=== PATIENT | male | born 2000 | race Hispanic/Latino ===

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

== ENCOUNTER 2020-09-12 03:40 | Emergency (ER) | payer SELFPAY ==
[2020-09-12 04:56] LABS: Absolute Lymphocytes (CBC) 2.5 K/uL (0.7-4.9); Basophils % 1.1 % (0-1.3); Hematocrit 47.1 % (39.6-49.0); Lymphocytes % 32.1 % (15.3-44.8); MPV 8.8 fL (7.6-11.3); RBC Red Blood Cell Count 5.19 M/uL (4.33-5.43)
[2020-09-12 05:24] LABS: ALT/SGPT 28 U/L (12-78); AST/SGOT 36 U/L (15-37); Albumin 4.2 g/dL (3.4-5.0); Alkaline Phosphatase 96 U/L (45-117); BUN Blood Urea Nitrogen 18 mg/dL (7-18); Bicarbonate 21 mmol/L (21-32); Bilirubin Direct < 0.1 mg/dL (0-0.2); Bilirubin Total 0.2 mg/dL (0.2-1.0); Glucose Level 85 mg/dL (74-106); Magnesium 2.6 mg/dL (1.8-2.4); NT PRO-BNP 8 pg/mL (<125); Potassium 3.8 mmol/L (3.5-5.1); Protein, Total 7.8 g/dL (6.4-8.2); Sodium Level 141 mmol/L (136-145); Troponin (Emerg Dept Use Only) < 0.02 ng/mL (0.0-0.045)
[2020-09-12 05:38] LABS: SARS-COV-2 RT PCR NEGATIVE (NEGATIVE)
[2020-09-12] MEDS ORDERED: NA CHLORIDE 0.9% 1,000 ML ONE (05:57)
--- NOTE | 2020-09-12 08:09 | RAD REPORT ---
EXAM DESCRIPTION: CT - Chest For Pe Angio - 09/12/2020 6:17 am CLINICAL HISTORY: Chest pain COMPARISON: None. TECHNIQUE: Dynamically enhanced axial 3 mm thick images of the chest were obtained during administra tion of <100> mL Isovue 370 IV contrast. Coronal and oblique reconstruction images were generated and reviewed. Exam utilizes a protocol for optimal evaluation of pulmonary arterial tree. Maximum intensity projections 3D imaging was utilized All CT scans are performed using dose optimization technique as appropriate and may include automated exposure control or mA/KV adjustment according to patient size. FINDINGS: A pulmonary embolus is not seen. A thoracic aortic aneurysm is not noted. A pleural effusion is not seen. A pericardial effusion is not seen. A lung consolidation is not present. IMPRESSION: Negative for a pulmonary embolism.
--- NOTE | 2020-09-12 08:09 | RAD REPORT ---
EXAM DESCRIPTION: [facility] Single View09/12/2020 5:11 am CLINICAL HISTORY: Chest pain COMPARISON: 2018 FINDINGS: The lungs appear clear of acute infiltrate. The heart is normal size IMPRESSION: No acute abnormalities displayed
--- NOTE | 2020-09-12 08:15 | ER ---
Nurse's Notes [facility] Name: Fredis Michaels Age: 19 yrs Sex: Male : 2000 Arrival Date: 09/12/2020 Time: 03:42 Bed 3 Private MD: Diagnosis: Chest pain, unspecified;Syncope and collapse Presentation: 09/12 03:45 Chief complaint: Patient states: Reports feeling chest pain; Friend reports patient lp1 passing out on ride to ED; patient states hx of similar symptoms with Flu; Denies any other symptoms at this time. Coronavirus screen: Client denies travel out of the [place] in the last 14 days. shortness of breath, Client presents with at least one sign or symptom that may indicate coronavirus-19. Standard/surgical mask placed on the client. Provider contacted for isolation considerations. Ebola Screen: No symptoms or risks identified at this time. Initial Sepsis Screen: Does the patient meet any 2 criteria? No. Patient's initial sepsis screen is negative. Does the patient have a suspected source of infection? No. Patient's initial sepsis screen is negative. Risk Assessment: Do you want to hurt yourself or someone else? Patient reports no desire to harm self or others. Onset of symptoms was September 12, 2020. 03:45 Method Of Arrival: Wheelchair lp1 03:45 Acuity: BRODERICK 3 lp1 Historical: - Allergies: 03:47 No Known Allergies; lp1 - Home Meds: 03:47 None [Active]; lp1 - PMHx: 03:47 flu infection; Myocardial infarction; lp1 - PSHx: 03:47 None; lp1 - Immunization history:: Adult Immunizations up to date. - Social history:: Smoking status: Patient reports the use of cigarette tobacco products, denies chronic smoking, but will smoke occasionally. Screenin:47 Abuse screen: Denies threats or abuse. Denies injuries from another. Nutritional lp1 screening: No deficits noted. Tuberculosis screening: No symptoms or risk factors identified. 04:13 Fall Risk IV access (20 points). ea Assessment: 03:45 General: Appears in no apparent distress. Behavior is drowsy. Pain: Complains of pain ea in chest. Neuro: Level of Consciousness is awake, alert, obeys commands, Oriented to person, place, time, situation. Respiratory: Airway is patent Respiratory effort is even, unlabored, Respiratory pattern is regular, symmetrical. Derm: Skin is pink, warm \T\ dry. 04:20 Reassessment: Patient and/or family updated on plan of care and expected duration. Pain ea level reassessed. Patient is alert, oriented x 3, equal unlabored respirations, skin warm/dry/pink. 05:51 Reassessment: Patient and/or family updated on plan of care and expected duration. Pain ea level reassessed. Pt resting with eyes closed respirations even and unlabored, chest expansions even and symmetrical. 06:05 Reassessment: Patient and/or family updated on plan of care and expected duration. Pain ea level reassessed. Patient is alert, oriented x 3, equal unlabored respirations, skin warm/dry/pink. Pt taken to CT. 07:00 Reassessment: RECD REPORT FROM MACHELLE CRUZ. 19YO HM P/W CHEST PAIN, 2/2 ANXIETY. ALL wh CURRENT ORDERS COMPLETE. 07:20 Reassessment: Patient appears in no apparent distress at this time. No changes from jd3 previously documented assessment. Patient and/or family updated on plan of care and expected duration. Pain level reassessed. Patient is alert, oriented x 3, equal unlabored respirations, skin warm/dry/pink. 08:49 Reassessment: Patient appears in no apparent distress at this time. Patient and/or jd3 family updated on plan of care and expected duration. Pain level reassessed. Patient is alert, oriented x 3, equal unlabored respirations, skin warm/dry/pink. awaiting phone to charge to call ride. Neuro: Level of Consciousness is awake, alert, obeys commands, Oriented to person, place, time, situation. Cardiovascular: Capillary refill < 3 seconds Patient's skin is warm and dry. Rhythm is regular. Respiratory: Airway is patent Respiratory effort is even, unlabored, Respiratory pattern is regular, symmetrical. GI: No signs and/or symptoms were reported involving the gastrointestinal system. : No signs and/or symptoms were reported regarding the genitourinary system. EENT: No signs and/or symptoms were reported regarding the EENT system. Derm: Skin is intact, Skin is dry, Skin is normal, Skin temperature is warm. Musculoskeletal: Circulation, motion, and sensation intact. Range of motion: intact in all extremities. 09:14 Reassessment: Patient and/or family updated on plan of care and expected duration. Pain jd3 level reassessed. Patient is alert, oriented x 3, equal unlabored respirations, skin warm/dry/pink. even and steady gait upon discharge. Vital Signs: 03:45 BP 133 / 83; Pulse 97; Resp 20; Pulse Ox 97% on R/A; lp1 03:58 Temp 98.8; Weight 83.91 kg; Height 5 ft. 6 in. (167.64 cm); ea 05:00 BP 106 / 64; Pulse 82; Resp 18; Pulse Ox 97% on R/A; ea 06:00 BP 103 / 70; Pulse 71; Resp 18; Pulse Ox 99% ; ea 07:20 BP 104 / 60; Pulse 71; Resp 19 S; Pulse Ox 98% on R/A; jd3 03:58 Body Mass Index 29.86 (83.91 kg, 167.64 cm) ea ED Course: 03:42 Patient arrived in ED. am2 03:42 Fuad Mahmood MD is Attending Physician. [facility] 03:46 Triage completed. lp1 03:46 Arm band placed on. lp1 03:53 Machelle Montgomery, ANTHONY is Primary Nurse. 03:57 Inserted saline lock: 20 gauge in right antecubital area, using aseptic technique. ea Blood collected. 03:58 Patient has correct armband on for positive identification. Bed in low position. Call ea light in reach. Side rails up X2. vehicle monitor technician on. Pulse ox on. NIBP on. 05:11 XRAY Chest (1 view) In Process Unspecified. EDMS 06:17 CT Chest For PE Angio In Process Unspecified. EDMS 07:38 Attending Physician role handed off by Fuad Mahmood MD rn 07:38 Elieser Wilson MD is Attending Physician. rn 08:50 No provider procedures requiring assistance completed. IV discontinued, intact, jd3 bleeding controlled, No redness/swelling at site. Pressure dressing applied. Administered Medications: 05:47 Drug: NS 0.9% 1000 ml Route: IV; Rate: 1000 ml; Site: right antecubital; ea 07:00 Follow up: Response: No adverse reaction; IV Status: Completed infusion jd3 Outcome: 08:15 Discharge ordered by . rn 08:50 Condition: stable jd3 08:50 Discharge instructions given to patient, Instructed on discharge instructions, follow up and referral plans. Demonstrated understanding of instructions, follow-up care. 09:14 Discharged to home ambulatory, with friend. jd3 09:15 Patient left the ED. jd3 Signatures: Dispatcher [employer] EDElieser Ronquillo MD MD rn Pena, Laura, RN RN lp1 Jo Ann Sousa Elena, RN RN ea Habalo, Winsy, RN RN wh Davies, Jonathon, RN RN jd3 Holmes, Maurice, MD MD 7
--- NOTE | 2020-09-12 08:15 | EDPHYS ---
Physician Documentation [facility] Name: Fredis Michaels Age: 19 yrs Sex: Male : 2000 Arrival Date: 09/12/2020 Time: 03:42 Bed 3 Private MD: ED Physician Elieser Wilson HPI: 09/12 04:05 This 19 yrs old Male presents to ER via Wheelchair with complaints of Chest mh7 pain. 04:05 The patient or guardian reports chest pain that is located primarily in the anterior mh7 chest wall, left. The pain does not radiate. 04:06 Associated signs and symptoms: Pertinent positives: cough, near-syncope, Pertinent mh7 negatives: abdominal pain, diaphoresis, dizziness, headache, lower extremity pain, lower extremity swelling, lightheadedness, nausea, palpitations, recent travel, shortness of breath, vomiting. The chest pain is described as sharp. 04:08 Duration: The patient or guardian reports a single episode, that is still ongoing. mh7 Modifying factors: The symptoms are alleviated by nothing. the symptoms are aggravated by nothing. Severity of pain: At its worst the pain was moderate today, in the emergency department the pain has improved moderately. Historical: - Allergies: 03:47 No Known Allergies; lp1 - Home Meds: 03:47 None [Active]; lp1 - PMHx: 03:47 flu infection; Myocardial infarction; lp1 - PSHx: 03:47 None; lp1 - Immunization history:: Adult Immunizations up to date. - Social history:: Smoking status: Patient reports the use of cigarette tobacco products, denies chronic smoking, but will smoke occasionally. ROS: 04:08 Constitutional: Negative for fever, chills, and weight loss, Eyes: Negative for injury, mh7 pain, redness, and discharge, ENT: Negative for injury, pain, and discharge, Neck: Negative for injury, pain, and swelling, Abdomen/GI: Negative for abdominal pain, nausea, vomiting, diarrhea, and constipation, Back: Negative for injury and pain, : Negative for injury, bleeding, discharge, and swelling, MS/Extremity: Negative for injury and deformity, Skin: Negative for injury, rash, and discoloration, Neuro: Negative for headache, weakness, numbness, tingling, and seizure, Psych: Negative for depression, anxiety, suicide ideation, homicidal ideation, and hallucinations, Allergy/Immunology: Negative for hives, rash, and allergies, Endocrine: Negative for neck swelling, polydipsia, polyuria, polyphagia, and marked weight changes, Hematologic/Lymphatic: Negative for swollen nodes, abnormal bleeding, and unusual bruising. Exam: 04:08 Constitutional: This is a well developed, well nourished patient who is awake, alert, mh7 and in no acute distress. Head/Face: Normocephalic, atraumatic. Eyes: Pupils equal round and reactive to light, extra-ocular motions intact. Lids and lashes normal. Conjunctiva and sclera are non-icteric and not injected. Cornea within normal limits. Periorbital areas with no swelling, redness, or edema. Neck: Trachea midline, no thyromegaly or masses palpated, and no cervical lymphadenopathy. Supple, full range of motion without nuchal rigidity, or vertebral point tenderness. No Meningismus. 04:08 Cardiovascular: Regular rate and rhythm with a normal S1 and S2. No gallops, murmurs, or rubs. Normal PMI, no JVD. No pulse deficits. Respiratory: Lungs have equal breath sounds bilaterally, clear to auscultation and percussion. No rales, rhonchi or wheezes noted. No increased work of breathing, no retractions or nasal flaring. Abdomen/GI: Soft, non-tender, with normal bowel sounds. No distension or tympany. No guarding or rebound. No evidence of tenderness throughout. Back: No spinal tenderness. No costovertebral tenderness. Full range of motion. Skin: Warm, dry with normal turgor. Normal color with no rashes, no lesions, and no evidence of cellulitis. MS/ Extremity: Pulses equal, no cyanosis. Neurovascular intact. Full, normal range of motion. Neuro: Awake and alert, GCS 15, oriented to person, place, time, and situation. Cranial nerves II-XII grossly intact. Motor strength 5/5 in all extremities. Sensory grossly intact. Cerebellar exam normal. Normal gait. Psych: Awake, alert, with orientation to person, place and time. Behavior, mood, and affect are within normal limits. 04:08 Chest/axilla: Inspection: normal, Palpation: tenderness, that is moderate, of the anterior aspect of left upper chest, that totally reproduces the patient's complaints. Vital Signs: 03:45 BP 133 / 83; Pulse 97; Resp 20; Pulse Ox 97% on R/A; lp1 03:58 Temp 98.8; Weight 83.91 kg; Height 5 ft. 6 in. (167.64 cm); ea 05:00 BP 106 / 64; Pulse 82; Resp 18; Pulse Ox 97% on R/A; ea 06:00 BP 103 / 70; Pulse 71; Resp 18; Pulse Ox 99% ; ea 07:20 BP 104 / 60; Pulse 71; Resp 19 S; Pulse Ox 98% on R/A; jd3 03:58 Body Mass Index 29.86 (83.91 kg, 167.64 cm) ea MDM: 07:12 Transition of care: After a detail discussion of the patient's case, care is mh7 transferred to Elieser Wilson MD. 07:38 Patient medically screened. rn 07:38 ED course: Pt signed out to me by Dr. Mahmood, plan was to get CT chest to rule out PE rn due ot elevated D-dimer. Dr. Mahmood does not believe that patient had previous DC, reports everything looks ok so far, plan was to dc home if CT chest negative. . 08:14 Differential diagnosis: acute myocardial infarction, acute pericarditis, anxiety, chest rn wall pain, costochondritis, gastroesophageal reflux disease (GERD), pleurisy, pneumonia, pneumothorax, pulmonary embolus, viral syndrome. Data reviewed: vital signs, nurses notes, lab test result(s), EKG, radiologic studies, CT scan, plain films, and as a result, I will discharge patient. Counseling: I had a detailed discussion with the patient and/or guardian regarding: the historical points, exam findings, and any diagnostic results supporting the discharge/admit diagnosis, lab results, radiology results, the need for outpatient follow up, to return to the emergency department if symptoms worsen or persist or if there are any questions or concerns that arise at home. Special discussion: Based on the patient's history, exam, and Dx evaluation, there is no indication for emergent intervention or inpatient Tx. It is understood by the patient/guardian that if the Sx's persist or worsen they need to return immediately for re-evaluation. I discussed with the patient/guardian in detail that at this point there is no indication for admission to the hospital. It is understood, however, that if the symptoms persist or worsen the patient needs to return immediately for re-evaluation. ED course: CT PE neg, COVID and flu neg, stable vitals, return to baseline, will dc home per Dr. Mahmood' plan. . 09/12 03:45 Order name: Basic Metabolic Panel [facility] 09/12 03:45 Order name: CBC with Diff [facility] 09/12 03:45 Order name: LFT's [facility] 09/12 03:45 Order name: Magnesium [facility] 09/12 03:45 Order name: NT PRO-BNP [facility] 09/12 03:45 Order name: PT-INR [facility] 09/12 03:45 Order name: Troponin (emerg Dept Use Only); Complete Time: 05:27 [facility] 09/12 03:45 Order name: Basic Metabolic Panel; Complete Time: 05:27 [facility] 09/12 03:45 Order name: CBC with Automated Diff; Complete Time: 05:27 [facility] 09/12 03:45 Order name: Liver (Hepatic) Function; Complete Time: 05:27 [facility] 09/12 03:45 Order name: Magnesium; Complete Time: 05:27 [facility] 09/12 03:45 Order name: XRAY Chest (1 view); Complete Time: 08:13 [facility] 09/12 03:45 Order name: EKG; Complete Time: 03:46 [facility] 09/12 03:45 Order name: Cardiac monitoring; Complete Time: 04:11 [facility] 09/12 03:45 Order name: EKG - Nurse/Tech; Complete Time: 04:11 [facility] 09/12 03:45 Order name: IV Saline Lock; Complete Time: 04:11 [facility] 09/12 03:45 Order name: Labs collected and sent; Complete Time: 04:11 [facility] 09/12 03:45 Order name: NT PRO-BNP; Complete Time: 05:27 [facility] 09/12 03:45 Order name: Protime (+INR); Complete Time: 05:27 [place] 09/12 04:18 Order name: ETOH Level [facility] 09/12 04:19 Order name: Alcohol Serum/Plasma; Complete Time: 05:27 [place] 09/12 04:29 Order name: Creatine Phosphokinase [facility] 09/12 04:29 Order name: Creatine Phosphokinase; Complete Time: 05:27 [facility] 09/12 05:27 Order name: D-Dimer; Complete Time: 06:29 [facility] 09/12 05:38 Order name: COVID-19/FLU A+B; Complete Time: 05:39 [facility] 09/12 05:46 Order name: CT Chest For PE Angio; Complete Time: 08:13 [facility] 09/12 03:45 Order name: O2 Per Protocol; Complete Time: 04:12 7 09/12 03:45 Order name: O2 Sat Monitoring; Complete Time: 04:12 [facility] Administered Medications: 05:47 Drug: NS 0.9% 1000 ml Route: IV; Rate: 1000 ml; Site: right antecubital; ea 07:00 Follow up: Response: No adverse reaction; IV Status: Completed infusion jd3 Disposition: 09/12/20 08:15 Discharged to Home. Impression: Chest pain, unspecified, Syncope and collapse. - Condition is Stable. - Discharge Instructions: Nonspecific Chest Pain, Syncope. - Medication Reconciliation Form, Thank You Letter, Antibiotic Education, Prescription Opioid Use, Work release form form. - Follow up: Private Physician; When: As needed; Reason: Recheck today's complaints, Re-evaluation by your physician. - Problem is new. - Symptoms are resolved. Signatures: Dispatcher [employer] EDMS Elieser Wilson MD MD rn Pena, Laura RN RN lp1 Marina Newberry RN RN ea Davies, Jonathon, RN RN jd3 Fuad Mahmood MD MD 7 Corrections: (The following items were deleted from the chart) 04:15 03:45 Influenza Screen (A \T\ B)+BA.LAB.BRZ ordered. [facility] 04:15 03:45 CORONAVIRUS+MR.LAB.BRZ ordered. [facility] 09:15 08:15 09/12/2020 08:15 Discharged to Home. Impression: Chest pain, unspecified; Syncope jd3 and collapse. Condition is Stable. Forms are Medication Reconciliation Form, Thank You Letter, Antibiotic Education, Prescription Opioid Use. Follow up: Private Physician; When: As needed; Reason: Recheck today's complaints, Re-evaluation by your physician. Problem is new. Symptoms are resolved. rn
[2020-09-12 09:21] VITALS: TEMP 98.8
[2020-09-12 09:24] VITALS: BP 104/60; O2SAT 98
== END 2020-09-12 09:15 | disposition home or self-care (01) ==
LOC: ER 03:40
DX: R55 Syncope and collapse (principal); Z20.822 Contact with and (suspected) exposure to COVID-19; I25.2 Old myocardial infarction; F17.210 Nicotine dependence, cigarettes, uncomplicated
CPT/HCPCS: 0240U; 36415; 71045; 71275; 80048; 80076; 80320; 82550; 83735; 83880; 84484; 85025; 85379; 85610; 93005; 96360; 99284; J7030; Q9967

== ENCOUNTER 2021-01-01 10:42 | Emergency (ER) | payer SELFPAY ==
[2021-01-01] MEDS ORDERED: ONDANSETRON 4 MG (ODT) TAB ONE (11:26)
[2021-01-01] MEDS ORDERED: HYDROCODONE/CHLORPHEN 5 ML/OSYR ONE (11:31)
--- NOTE | 2021-01-01 12:49 | EDPHYS ---
Physician Documentation [facility] Name: Fredis Michaels Age: 20 yrs Sex: Male : 2000 Arrival Date: 01/01/2021 Time: 10:45 Bed 18 Private MD: ED Physician Viraj King HPI: 01/01 11:23 This 20 yrs old Male presents to ER via Ambulatory with complaints of Fever, jr8 vomiting, sore throat, bodyaches . 11:23 Patient stated that since yesterday started with COVID symptoms including fevers, jr8 myalgias, sore throat, sneezing, loss of taste and smell. Onset: The symptoms/episode began/occurred acutely, yesterday. Severity of symptoms: At their worst the symptoms were moderate in the emergency department the symptoms are unchanged. The patient has not experienced similar symptoms in the past. The patient has not recently seen a physician. Historical: - Allergies: 10:49 No Known Allergies; jd3 - Home Meds: 10:49 None [Active]; jd3 - PMHx: 10:49 flu infection; Myocardial infarction; jd3 - PSHx: 10:49 None; jd3 - Immunization history:: Adult Immunizations up to date. - Social history:: Smoking status: Patient denies any tobacco usage or history of. ROS: 11:23 Eyes: Negative for injury, pain, redness, and discharge, Neck: Negative for injury, jr8 pain, and swelling, Cardiovascular: Negative for chest pain, palpitations, and edema, Back: Negative for injury and pain, MS/Extremity: Negative for injury and deformity, Skin: Negative for injury, rash, and discoloration, Neuro: Negative for headache, weakness, numbness, tingling, and seizure. 11:23 Constitutional: Positive for body aches, chills, fever, malaise. 11:23 ENT: Positive for sinus congestion, sore throat. 11:23 Respiratory: Positive for cough. Exam: 11:23 Constitutional: This is a well developed, well nourished patient who is awake, alert, jr8 and in no acute distress. Eyes: Pupils equal round and reactive to light, extra-ocular motions intact. Lids and lashes normal. Conjunctiva and sclera are non-icteric and not injected. Cornea within normal limits. Periorbital areas with no swelling, redness, or edema. ENT: Nares patent. No nasal discharge, no septal abnormalities noted. Tympanic membranes are normal and external auditory canals are clear. Oropharynx with no redness, swelling, or masses, exudates, or evidence of obstruction, uvula midline. Mucous membranes moist. Neck: Trachea midline, no thyromegaly or masses palpated, and no cervical lymphadenopathy. Supple, full range of motion without nuchal rigidity, or vertebral point tenderness. No Meningismus. Cardiovascular: Regular rate and rhythm with a normal S1 and S2. No gallops, murmurs, or rubs. Normal PMI, no JVD. No pulse deficits. Respiratory: Lungs have equal breath sounds bilaterally, clear to auscultation and percussion. No rales, rhonchi or wheezes noted. No increased work of breathing, no retractions or nasal flaring. Abdomen/GI: Soft, non-tender, with normal bowel sounds. No distension or tympany. No guarding or rebound. No evidence of tenderness throughout. Back: No spinal tenderness. No costovertebral tenderness. Full range of motion. Skin: Warm, dry with normal turgor. Normal color with no rashes, no lesions, and no evidence of cellulitis. MS/ Extremity: Pulses equal, no cyanosis. Neurovascular intact. Full, normal range of motion. Neuro: Awake and alert, GCS 15, oriented to person, place, time, and situation. Cranial nerves II-XII grossly intact. Motor strength 5/5 in all extremities. Sensory grossly intact. Vital Signs: 10:49 BP 120 / 62; Pulse 80; Resp 17 S; Temp 97.7(TE); Pulse Ox 99% on R/A; Weight 83.91 kg jd3 (R); Height 5 ft. 6 in. (167.64 cm) (R); Pain 8/10; 13:10 BP 113 / 58; Pulse 70; Resp 16; Pulse Ox 100% on R/A; ll1 10:49 Body Mass Index 29.86 (83.91 kg, 167.64 cm) jd3 MDM: 10:57 Patient medically screened. jr8 12:44 Data reviewed: vital signs, nurses notes, lab test result(s). Data interpreted: Pulse jr8 oximetry: on room air is 99 %. Interpretation: normal. Counseling: I had a detailed discussion with the patient and/or guardian regarding: the historical points, exam findings, and any diagnostic results supporting the discharge/admit diagnosis, lab results, the need for outpatient follow up, a family practitioner, to return to the emergency department if symptoms worsen or persist or if there are any questions or concerns that arise at home. ED course: Discussed with patient that I will put him on medicine for his symptoms. Suggested swabbing again in a few days due to his symptoms. If worse to come back for further evaluation . 01/01 12:37 Order name: SARS-COV-2 RT PCR; Complete Time: 12:43 EDMS Administered Medications: 11:16 Drug: Zofran (Ondansetron) 4 mg Route: PO; ll1 13:13 Follow up: Response: No adverse reaction; RASS: Alert and Calm (0) ll1 11:16 Drug: Tussionex Pennkinetic ER (chlorpheniramine-hydrocodone) 5 ml Route: PO; ll1 13:13 Follow up: Response: No adverse reaction; RASS: Alert and Calm (0) ll1 Disposition: 01/02 07:49 Co-signature as Attending Physician, Viraj King MD I agree with the assessment and edita plan of care. Disposition: 01/01/21 12:48 Discharged to Home. Impression: Acute upper respiratory infection, unspecified. - Condition is Stable. - Discharge Instructions: Upper Respiratory Infection, Adult, COVID-19. - Prescriptions for promethazine- DM 6.25-15 mg/5 mL Oral syrup - take 5 milliliter by ORAL route every 4 hours as needed; 100 milliliter. Prednisone 20 mg Oral Tablet - take 1 tablet by ORAL route once daily for 5 days; 5 tablet. Tessalon Perles 100 mg Oral Capsule - take 1 capsule by ORAL route every 8 hours As needed; 15 capsule. - Medication Reconciliation Form, Thank You Letter, Antibiotic Education, Prescription Opioid Use, Work release form form. - Follow up: Private Physician; When: 2 - 3 days; Reason: Recheck today's complaints, Continuance of care, Re-evaluation by your physician. - Problem is new. - Symptoms have improved. Signatures: Dispatcher [employer] EDHI Viraj King MD MD cha Roszak, Josh, PA PA jr8 Davies, Jonathon, RN RN jd3 Yandy Rosenbaum RN RN ll1 Corrections: (The following items were deleted from the chart) 01/01 11:41 11:37 CORONAVIRUS+ ordered. EDMS EDMS 13:13 12:48 01/01/2021 12:48 Discharged to Home. Impression: Acute upper respiratory ll1 infection, unspecified. Condition is Stable. Forms are Medication Reconciliation Form, Thank You Letter, Antibiotic Education, Prescription Opioid Use. Follow up: Private Physician; When: 2 - 3 days; Reason: Recheck today's complaints, Continuance of care, Re-evaluation by your physician. Problem is new. Symptoms have improved. jr8
--- NOTE | 2021-01-01 12:49 | ER ---
Nurse's Notes [facility] Name: Fredis Michaels Age: 20 yrs Sex: Male : 2000 Arrival Date: 01/01/2021 Time: 10:45 Bed 18 Private MD: Diagnosis: Acute upper respiratory infection, unspecified Presentation: 01/01 10:47 Chief complaint: Patient states: "I had a fever yesterday as well as some diarrhea. I jd3 lost my taste and my throat is hurting. I am also vomiting.". Coronavirus screen: fever, nausea, loss of taste or smell, vomiting. Client presents with at least one sign or symptom that may indicate coronavirus-19. Standard/surgical mask placed on the client. Provider contacted for isolation considerations. Ebola Screen: Patient negative for fever greater than or equal to 101.5 degrees Fahrenheit, and additional compatible Ebola Virus Disease symptoms. Initial Sepsis Screen: Does the patient meet any 2 criteria? No. Patient's initial sepsis screen is negative. Does the patient have a suspected source of infection? No. Patient's initial sepsis screen is negative. Risk Assessment: Do you want to hurt yourself or someone else? Patient reports no desire to harm self or others. Onset of symptoms was December 30, 2020. 10:47 Method Of Arrival: Ambulatory jd3 10:47 Acuity: BRODERICK 3 jd3 Historical: - Allergies: 10:49 No Known Allergies; jd3 - Home Meds: 10:49 None [Active]; jd3 - PMHx: 10:49 flu infection; Myocardial infarction; jd3 - PSHx: 10:49 None; jd3 - Immunization history:: Adult Immunizations up to date. - Social history:: Smoking status: Patient denies any tobacco usage or history of. Screenin:12 Abuse screen: Denies threats or abuse. Nutritional screening: No deficits noted. ll1 Tuberculosis screening: No symptoms or risk factors identified. Fall Risk None identified. Total Agrawal Fall Scale indicates No Risk (0-24 pts). Assessment: 11:15 General: Appears ill, Behavior is calm, cooperative, Smells of. Pain: Denies pain. ll1 Neuro: Level of Consciousness is awake, alert, obeys commands, Oriented to person, place, time, situation, Appropriate for age Sales Support Assistant are equal bilaterally Moves all extremities. Full function Gait is steady, Speech is normal, Facial symmetry appears normal, Reports headache weakness. Cardiovascular: No deficits noted. Respiratory: Reports cough that is Airway is patent Trachea midline Respiratory effort is even, unlabored, Respiratory pattern is regular, symmetrical, Breath sounds are clear bilaterally. GI: Abdomen is flat, Bowel sounds present X 4 quads. Abd is soft and non tender X 4 quads. Reports diarrhea, nausea, vomiting. EENT: Reports nasal congestion. Musculoskeletal: Reports body aches;fatigue. Vital Signs: 10:49 BP 120 / 62; Pulse 80; Resp 17 S; Temp 97.7(TE); Pulse Ox 99% on R/A; Weight 83.91 kg jd3 (R); Height 5 ft. 6 in. (167.64 cm) (R); Pain 8/10; 13:10 BP 113 / 58; Pulse 70; Resp 16; Pulse Ox 100% on R/A; ll1 10:49 Body Mass Index 29.86 (83.91 kg, 167.64 cm) [facility] [place] ED Course: 10:45 Patient arrived in ED. ds1 10:46 Yandy Rosenbaum, ANTHONY is Primary Nurse. ll1 10:46 Arm band placed on Patient placed in an exam room, on a stretcher. ll1 10:49 Triage completed. jd3 10:56 Romeo Bhagat PA is PHCP. jr8 10:56 Viraj King MD is Attending Physician. jr8 11:15 Patient has correct armband on for positive identification. Bed in low position. Call ll1 light in reach. Side rails up X 1. Pulse ox on. NIBP on. 13:12 No provider procedures requiring assistance completed. Patient did not have IV access ll1 during this emergency room visit. Administered Medications: 11:16 Drug: Zofran (Ondansetron) 4 mg Route: PO; ll1 13:13 Follow up: Response: No adverse reaction; RASS: Alert and Calm (0) ll1 11:16 Drug: Tussionex Pennkinetic ER (chlorpheniramine-hydrocodone) 5 ml Route: PO; ll1 13:13 Follow up: Response: No adverse reaction; RASS: Alert and Calm (0) ll1 Outcome: 12:48 Discharge ordered by . jr8 13:12 Discharged to home ambulatory. ll1 13:12 Condition: stable 13:12 Discharge instructions given to patient, Instructed on discharge instructions, follow up and referral plans. medication usage, Demonstrated understanding of instructions, follow-up care, medications, Prescriptions given X 3. 13:13 Patient left the ED. ll1 Signatures: Kailee Mirza ds1 Romeo Bhagat PA PA jr8 Carl Ma RN RN jd3 Yandy Rosenbaum RN RN ll1
[2021-01-01 13:18] VITALS: TEMP 97.7
[2021-01-01 13:19] VITALS: BP 113/58; O2SAT 100
== END 2021-01-01 13:13 | disposition home or self-care (01) ==
LOC: ER 10:42
DX: J06.9 Acute upper respiratory infection, unspecified (principal); Z20.822 Contact with and (suspected) exposure to COVID-19; I25.2 Old myocardial infarction
CPT/HCPCS: 99283; U0003

== ENCOUNTER 2021-06-30 14:02 | Emergency (ER) | payer SELFPAY ==
[2021-06-30] MEDS ORDERED: LIDOCAINE VISCOUS 2% SOLN 15 ML UDC ONE (14:46)
[2021-06-30] MEDS ORDERED: MAGNES/ALUMIN/SIMET 30ML UCUP ONE (14:46)
[2021-06-30] MEDS ORDERED: ONDANSETRON 4 MG/2 ML VIAL ONE (14:47)
[2021-06-30 15:01] LABS: Absolute Lymphocytes (CBC) 0.5 K/uL (0.7-4.9); Basophils % 0.6 % (0-1.3); Hematocrit 45.7 % (39.6-49.0); MPV 7.3 fL (7.6-11.3); RBC Red Blood Cell Count 5.05 M/uL (4.33-5.43)
[2021-06-30 15:02] LABS: Protime INR 1.02
[2021-06-30 15:28] LABS: ALT/SGPT 26 U/L (12-78); AST/SGOT 23 U/L (15-37); Albumin 4.2 g/dL (3.4-5.0); Alkaline Phosphatase 66 U/L (45-117); BUN Blood Urea Nitrogen 22 mg/dL (7-18); Bicarbonate 26 mmol/L (21-32); Bilirubin Direct 0.2 mg/dL (0-0.2); Bilirubin Total 0.4 mg/dL (0.2-1.0); Glucose Level 79 mg/dL (74-106); Lipase 75 U/L (73-393); Magnesium 2.3 mg/dL (1.8-2.4); Potassium 4.2 mmol/L (3.5-5.1); Protein, Total 7.9 g/dL (6.4-8.2); Sodium Level 141 mmol/L (136-145); Troponin (Emerg Dept Use Only) < 0.02 ng/mL (0.0-0.045)
[2021-06-30 15:29] LABS: NT PRO-BNP < 5 pg/mL (<125)
--- NOTE | 2021-06-30 15:33 | RAD REPORT ---
EXAM DESCRIPTION: RAD - Chest Single View - 06/30/2021 3:18 pm CLINICAL HISTORY: CHEST PAIN Chest pain. COMPARISON: Chest Single View dated 09/12/2020; Chest Single View dated 05/31/2019; Chest Single View dated 04/28/2019; Chest Single View dated 12/03/2018 FINDINGS: Portable technique limits examination quality. The lungs are grossly clear. The heart is normal in size. No displaced fractures. IMPRESSION: No acute intrathoracic process suspected.
[2021-06-30 15:50] LABS: Blood Morphology Comment NOT SEEN (NOT SEEN); Platelet Estimate ADEQ; White Blood Cell Scan OK (OK)
--- NOTE | 2021-06-30 15:51 | ER ---
Nurse's Notes [facility] Name: Fredis Michaels Age: 20 yrs Sex: Male : 2000 Arrival Date: 06/30/2021 Time: 14:05 Bed 2 Private MD: Diagnosis: Epigastric pain;Functional dyspepsia Presentation: 06/30 14:32 Chief complaint: Patient states: NV, headache and chest pain began about x2 days. vg1 States mid chest pain, denies radiation. States cough x1 week. Coronavirus screen: Vaccine status: Patient reports being unvaccinated. Client denies travel out of the [place] in the last 14 days. Ebola Screen: Patient negative for fever greater than or equal to 101.5 degrees Fahrenheit, and additional compatible Ebola Virus Disease symptoms. Initial Sepsis Screen: Does the patient meet any 2 criteria? No. Patient's initial sepsis screen is negative. Does the patient have a suspected source of infection? No. Patient's initial sepsis screen is negative. Risk Assessment: Do you want to hurt yourself or someone else? Patient reports no desire to harm self or others. Onset of symptoms was June 28, 2021. 14:32 Method Of Arrival: Ambulatory vg1 14:32 Acuity: BRODERICK 3 vg1 Triage Assessment: 14:34 General: Appears in no apparent distress. uncomfortable, Behavior is calm, cooperative. vg1 Pain: Complains of pain in chest. Cardiovascular: Patient's skin is warm and dry. Historical: - Allergies: 14:34 No Known Allergies; vg1 - Home Meds: 14:34 None [Active]; vg1 - PMHx: 14:36 Myocardial infarction; aa5 - PSHx: 14:34 None; vg1 - Immunization history:: Client reports having NOT received the Covid vaccine. - Social history:: Smoking status: Patient reports the use of cigarette tobacco products, denies chronic smoking, but will smoke occasionally. Screenin:35 Abuse screen: Denies threats or abuse. Nutritional screening: No deficits noted. aa5 Tuberculosis screening: No symptoms or risk factors identified. Fall Risk None identified. Assessment: 14:35 General: Appears comfortable, Behavior is calm, cooperative. Pain: Complains of pain in aa5 mid-sternal area and head Pain does not radiate. Pain currently is 8 out of 10 on a pain scale. Neuro: Level of Consciousness is awake, alert, obeys commands, Oriented to person, place, time, situation. Cardiovascular: Heart tones S1 S2 present Rhythm is sinus arrythmia. Respiratory: Airway is patent Respiratory effort is even, unlabored, Respiratory pattern is regular, symmetrical, Breath sounds are clear bilaterally. GI: Abdomen is round non-distended, Bowel sounds present X 4 quads. Abd is soft and non tender X 4 quads. Reports nausea, vomiting. : No signs and/or symptoms were reported regarding the genitourinary system. EENT: No signs and/or symptoms were reported regarding the EENT system. Derm: Skin is pink, warm \T\ dry. Musculoskeletal: Range of motion: intact in all extremities. Vital Signs: 14:32 BP 119 / 70; Pulse 88; Resp 16; Temp 98.1; Pulse Ox 100% ; Weight 83.91 kg; Height 5 vg1 ft. 6 in. (167.64 cm); Pain 8/10; 15:00 BP 104 / 61; Pulse 70; Resp 14 S; Pulse Ox 97% on R/A; aa5 16:00 BP 103 / 58; Pulse 78; Resp 16 S; Pulse Ox 98% on R/A; aa5 14:32 Body Mass Index 29.86 (83.91 kg, 167.64 cm) vg1 ED Course: 14:05 Patient arrived in ED. mr 14:19 Romeo Bhagat PA is PHCP. jr8 14:19 Bud Gold MD is Attending Physician. jr8 14:34 Triage completed. vg1 14:34 Arm band placed on. vg1 14:35 Patient has correct armband on for positive identification. Bed in low position. Call aa5 light in reach. Side rails up X2. data analytics analyst on. Pulse ox on. NIBP on. 14:37 Ivonne Bryant, ANTHONY is Primary Nurse. aa5 14:44 Initial lab(s) drawn, by me, sent to lab. Inserted saline lock: 20 gauge in right aa5 antecubital area, using aseptic technique. Blood collected. 15:00 No provider procedures requiring assistance completed. Patient maintains SpO2 aa5 saturation greater than 95% on room air. 15:18 XRAY Chest (1 view) In Process Unspecified. EDMS 15:50 Yonathan Arthur MD is Referral Physician. jr8 Administered Medications: 14:52 Drug: GI Cocktail without - (Maalox Suspension 30 ml, Lidocaine Liquid 2 % 15 jh5 ml) Route: PO; 14:52 Drug: Zofran (Ondansetron) 4 mg Route: IVP; Site: right antecubital; 5 Outcome: 15:51 Discharge ordered by . gamal 16:10 Patient left the ED. 5 Signatures: Dispatcher [employer] EDHI Katrin LopzeIvonne, RN RN aa5 Romeo Bhagat PA PA jr8 Yanelis Mcdaniel, RN RN vg1 Guadalupe Mcbride RN RN jh5 Corrections: (The following items were deleted from the chart) 16:05 14:25 Abuse screen: Denies threats or abuse. aa5 5 16:05 14:25 Nutritional screening: No deficits noted. aa5 5 16:05 14:25 Tuberculosis screening: No symptoms or risk factors identified. aa5 5 16:05 14:25 Fall Risk None identified. 5 5
--- NOTE | 2021-06-30 15:51 | EDPHYS ---
Physician Documentation [facility] Name: Fredis Michaels Age: 20 yrs Sex: Male : 2000 Arrival Date: 06/30/2021 Time: 14:05 Bed 2 Private MD: ED Physician Bud Gold HPI: 06/30 14:41 This 20 yrs old Male presents to ER via Ambulatory with complaints of Chest jr8 Pain, Vomiting. 14:41 Modifying factors: The symptoms are alleviated by nothing. the symptoms are aggravated jr8 by nothing. Severity of pain: At its worst the pain was moderate in the emergency department the pain is unchanged. The patient has experienced similar episodes in the past, a few times. The patient has not recently seen a physician. This is a 20-year-old male patient with history of chest pain and possible myocardial injury in the past that presented to the emergency room today with epigastric discomfort and vomiting that radiates to the chest causing chest pain. Patient was at work when it started. Denies any current meds at this time.. Historical: - Allergies: 14:34 No Known Allergies; vg1 - Home Meds: 14:34 None [Active]; vg1 - PMHx: 14:36 Myocardial infarction; aa5 - PSHx: 14:34 None; vg1 - Immunization history:: Client reports having NOT received the Covid vaccine. - Social history:: Smoking status: Patient reports the use of cigarette tobacco products, denies chronic smoking, but will smoke occasionally. ROS: 14:41 Eyes: Negative for injury, pain, redness, and discharge, ENT: Negative for injury, jr8 pain, and discharge, Neck: Negative for injury, pain, and swelling, Respiratory: Negative for shortness of breath, cough, wheezing, and pleuritic chest pain, Back: Negative for injury and pain, MS/Extremity: Negative for injury and deformity, Skin: Negative for injury, rash, and discoloration, Neuro: Negative for headache, weakness, numbness, tingling, and seizure. 14:41 Cardiovascular: Positive for chest pain, Negative for edema, orthopnea, palpitations, paroxysmal nocturnal dyspnea. 14:41 Abdomen/GI: Positive for abdominal pain, nausea and vomiting, Negative for diarrhea, hematemesis. Exam: 14:41 Constitutional: This is a well developed, well nourished patient who is awake, alert, jr8 and in no acute distress. ENT: Nares patent. No nasal discharge, no septal abnormalities noted. Tympanic membranes are normal and external auditory canals are clear. Oropharynx with no redness, swelling, or masses, exudates, or evidence of obstruction, uvula midline. Mucous membranes moist. Neck: Trachea midline, no thyromegaly or masses palpated, and no cervical lymphadenopathy. Supple, full range of motion without nuchal rigidity, or vertebral point tenderness. No Meningismus. Chest/axilla: Normal chest wall appearance and motion. Nontender with no deformity. No lesions are appreciated. Cardiovascular: Regular rate and rhythm with a normal S1 and S2. No gallops, murmurs, or rubs. Normal PMI, no JVD. No pulse deficits. Respiratory: Lungs have equal breath sounds bilaterally, clear to auscultation and percussion. No rales, rhonchi or wheezes noted. No increased work of breathing, no retractions or nasal flaring. Abdomen/GI: Soft, non-tender, with normal bowel sounds. No distension or tympany. No guarding or rebound. No evidence of tenderness throughout. Back: No spinal tenderness. No costovertebral tenderness. Full range of motion. Skin: Warm, dry with normal turgor. Normal color with no rashes, no lesions, and no evidence of cellulitis. MS/ Extremity: Pulses equal, no cyanosis. Neurovascular intact. Full, normal range of motion. Neuro: Awake and alert, GCS 15, oriented to person, place, time, and situation. Cranial nerves II-XII grossly intact. Motor strength 5/5 in all extremities. Sensory grossly intact. Vital Signs: 14:32 BP 119 / 70; Pulse 88; Resp 16; Temp 98.1; Pulse Ox 100% ; Weight 83.91 kg; Height 5 vg1 ft. 6 in. (167.64 cm); Pain 8/10; 15:00 BP 104 / 61; Pulse 70; Resp 14 S; Pulse Ox 97% on R/A; aa5 16:00 BP 103 / 58; Pulse 78; Resp 16 S; Pulse Ox 98% on R/A; aa5 14:32 Body Mass Index 29.86 (83.91 kg, 167.64 cm) [facility] MDM: 14:19 Patient medically screened. jr8 15:47 ECG:. 15:47 Data reviewed: vital signs, nurses notes, lab test result(s), EKG, radiologic studies, jr8 plain films. Data interpreted: Pulse oximetry: on room air is 100 %. Interpretation: normal. Counseling: I had a detailed discussion with the patient and/or guardian regarding: the historical points, exam findings, and any diagnostic results supporting the discharge/admit diagnosis, lab results, radiology results, the need for outpatient follow up, a family practitioner, a polymerization oven tender, to return to the emergency department if symptoms worsen or persist or if there are any questions or concerns that arise at home. ED course: Patient feeling better post therapy. Based on physical exam labs and imaging I feel that this is more gastric or duodenal in appearance. Recommended follow-up with gastroenterology. We will start patient on omeprazole for the time being. Patient good with this and will come back if he worsens. Otherwise will follow up with gastroenterology.. 06/30 14:39 Order name: Basic Metabolic Panel; Complete Time: 15:46 06/30 14:39 Order name: CBC with Diff; Complete Time: 15:51 06/30 14:39 Order name: LFT's; Complete Time: 15:46 06/30 14:39 Order name: Magnesium; Complete Time: 15:46 06/30 14:39 Order name: NT PRO-BNP; Complete Time: 15:46 06/30 14:39 Order name: PT-INR; Complete Time: 15:46 06/30 14:39 Order name: Troponin (emerg Dept Use Only); Complete Time: 15:46 06/30 14:39 Order name: XRAY Chest (1 view); Complete Time: 15:46 06/30 14:39 Order name: EKG; Complete Time: 14:40 06/30 14:39 Order name: Cardiac monitoring; Complete Time: 15:13 06/30 14:39 Order name: Lipase; Complete Time: 15:46 06/30 15:50 Order name: CBC Smear Scan; Complete Time: 15:51 EDND 06/30 14:39 Order name: EKG - Nurse/Tech; Complete Time: 15:13 06/30 14:39 Order name: IV Saline Lock; Complete Time: 15:13 8 06/30 14:39 Order name: Labs collected and sent; Complete Time: 15:13 8 06/30 14:39 Order name: O2 Per Protocol; Complete Time: 15:06/30 14:39 Order name: O2 Sat Monitoring; Complete Time: 15:13 EC:47 Rate is 66 beats/min. Rhythm is regular, Sinus Rhythm. QRS [place] is Normal. ME interval jr8 is normal at 148 msec. QRS interval is normal at 88 msec. QT interval is normal at 442 msec. No Q waves. T waves are Normal. No ST changes noted. Clinical impression: Normal ECG. Interpreted by me. Reviewed by me. Administered Medications: 14:52 Drug: GI Cocktail without - (Maalox Suspension 30 ml, Lidocaine Liquid 2 % 15 jh5 ml) Route: PO; 14:52 Drug: Zofran (Ondansetron) 4 mg Route: IVP; Site: right antecubital; jh5 Disposition Summary: 06/30/21 15:51 Discharge Ordered Location: Home [facility] Problem: new jr8 Symptoms: have improved jr8 Condition: Stable jr8 Diagnosis - Epigastric pain jr8 - Functional dyspepsia jr8 Followup: jr8 - With: Yonathan Arthur MD - When: 2 - 3 days - Reason: Recheck today's complaints, Continuance of care, Re-evaluation by your physician Discharge Instructions: - Discharge Summary Sheet jr8 - Gastritis, Adult jr8 - Indigestion jr8 - Upper Endoscopy, Adult jr8 Forms: - Medication Reconciliation Form jr8 - Thank You Letter jr8 - Antibiotic Education jr8 - Prescription Opioid Use jr8 Prescriptions: - omeprazole 40 mg Oral capsule,delayed release(DR/EC) - take 1 capsule by ORAL route once daily before a meal; 30 capsule; Refills: 0, jr8 Product Selection Permitted - Zofran 4 mg Oral Tablet - take 1 tablet by ORAL route every 12 hours As needed; 20 tablet; Refills: 0, jr8 Product Selection Permitted Addendum: 07/05/2021 05:32 Co-signature as Attending Physician, Bud Gold MD PA/HARDWARE DESIGN ENGINEER's history reviewed, m a2 patient interviewed, and examined. I agree with assessment and care plan and confirm the diagnosis (es) above. Signatures: Dispatcher [employer] Ivonne Younger RN RN aa5 Romeo Bhagat PA PA jr8 Bud Gold MD MD ma2 Yanelis Mcdaniel RN RN vg1 Guadalupe Mcbride RN RN jh5
[2021-06-30 16:28] VITALS: TEMP 98.1
[2021-06-30 16:31] VITALS: BP 103/58; O2SAT 98
--- NOTE | 2021-07-02 20:43 | EKG ---
Test Date: 2021-06-30 Test Time: 15:22:38 [employer] Mdm Architect: ANDREIA MEASUREMENT RESULTS: Intervals: Rate: 66 LA: 148 QRSD: 88 QT: 422 QTc: 442 Universal: P: 62 LA: 148 QRS: 61 T: 54 INTERPRETIVE STATEMENTS: Normal sinus rhythm Normal ECG Compared to ECG 06/30/2021 14:50:14 Atrial fibrillation no longer present Electronically Signed On 07-02-21 20:35:44 MANAGER ADMINISTRATIVE SERVICES by Phi Bo
--- NOTE | 2021-07-02 20:43 | EKG ---
Test Date: 2021-06-30 Test Time: 14:50:14 Addiction Counselor: ANDREIA MEASUREMENT RESULTS: Intervals: Rate: 74 AK: QRSD: 90 QT: 414 QTc: 459 [place]: P: AK: QRS: 63 T: 64 INTERPRETIVE STATEMENTS: Atrial fibrillation Abnormal ECG Compared to ECG 09/12/2020 03:43:15 Sinus tachycardia no longer present Electronically Signed On 07-02-21 20:35:47 SENIOR PATIENT ACCOUNT REPRESENTATIVE by Phi Bo
== END 2021-06-30 16:10 | disposition home or self-care (01) ==
LOC: ER 14:02
DX: K30 Functional dyspepsia (principal); I25.2 Old myocardial infarction; F17.210 Nicotine dependence, cigarettes, uncomplicated
CPT/HCPCS: 36415; 71045; 80048; 80076; 83690; 83735; 83880; 84484; 85025; 85610; 93005; 96374; 99285; J2405

== ENCOUNTER 2022-01-02 21:53 | Emergency (ER) | payer SELFPAY ==
[2022-01-03 01:23] LABS: Absolute Lymphocytes (CBC) 1.1 K/uL (0.7-4.9); Hematocrit 49.9 % (39.6-49.0); Lymphocytes % 24.3 % (15.3-44.8); MPV 7.7 fL (7.6-11.3); RBC Red Blood Cell Count 5.57 M/uL (4.33-5.43)
[2022-01-03 01:33] LABS: Albumin 3.9 g/dL (3.4-5.0); Bilirubin Total 0.3 mg/dL (0.2-1.0); Potassium 3.4 mmol/L (3.5-5.1); Protein, Total 8.1 g/dL (6.4-8.2)
[2022-01-03 01:53] LABS: Urine Blood Negative (Negative); Urine Glucose Negative (Negative); Urine Protein 2+ (Negative); Urine Specific Gravity 1.025 (1.005-1.030); Urine pH 6.5 (5.0-7.0)
[2022-01-03] MEDS ORDERED: ONDANSETRON 4 MG/2 ML VIAL ONE (01:59)
[2022-01-03] MEDS ORDERED: NA CHLORIDE 0.9% 1,000 ML ONE (01:59)
[2022-01-03] MEDS ORDERED: FAMOTIDINE 20 MG/2 ML VIAL IV ONE (02:00)
--- NOTE | 2022-01-03 03:36 | ER ---
Nurse's Notes [facility] Name: Fredis Michaels Age: 21 yrs Sex: Male : 2000 Arrival Date: 01/02/2022 Time: 21:56 Bed 20 Private MD: Diagnosis: Gastroenteritis Presentation: 01/02 22:24 Chief complaint: Patient states: I ate something that started giving me nausea, The jb4 second day I had diarrhea and vomiting, day 3 it subsided, day for it came back and was much worse. I am now having abdominal pain and cramping N/V/D. I noticed small streaks of blood in my vomit, I am dizzy and find myself off balance when trying to walk. Coronavirus screen: At this time, the client does not indicate any symptoms associated with coronavirus-19. Ebola Screen: No symptoms or risks identified at this time. Initial Sepsis Screen: Does the patient meet any 2 criteria? HR > 90 bpm. Yes Does the patient have a suspected source of infection? Yes: Skin breakdown/wound. Risk Assessment: Do you want to hurt yourself or someone else? Patient reports no desire to harm self or others. Onset of symptoms was January 02, 2022. Transition of care: patient was not received from another setting of care. 22:24 Method Of Arrival: Ambulatory jb4 22:24 Acuity: BRODERICK 3 jb4 Historical: - Allergies: 22:29 No Known Allergies; jb4 - Home Meds: 22:29 None [Active]; jb4 - PMHx: 22:29 flu infection; Myocardial infarction; jb4 - PSHx: 22:29 None; jb4 - Immunization history:: Adult Immunizations up to date. - Social history:: Smoking status: Patient reports the use of cigarette tobacco products, denies chronic smoking, but will smoke occasionally, Patient uses alcohol, occasionally. street drugs, marijuana. Screenin/16 00:59 Abuse screen: Denies threats or abuse. Nutritional screening: No deficits noted. ag7 Tuberculosis screening: No symptoms or risk factors identified. Fall Risk No fall in past 12 months (0 pts). No secondary diagnosis (0 pts). IV access (20 points). Ambulatory Aid- None/Bed Rest/Nurse Assist (0 pts). Gait- Normal/Bed Rest/Wheelchair (0 pts) Mental Status- Oriented to own ability (0 pts). Total Agrawal Fall Scale indicates No Risk (0-24 pts). Assessment: 00:56 General: Appears in no apparent distress. Behavior is calm, cooperative, appropriate ag7 for age. Pain: Complains of pain in abdomen Pain does not radiate. Pain currently is 7 out of 10 on a pain scale. Quality of pain is described as aching, Pain began suddenly, Is continuous, Alleviated by nothing. Aggravated by. Neuro: Level of Consciousness is awake, alert, obeys commands, Oriented to Appropriate for age. Cardiovascular: Heart tones S1 S2 present Patient's skin is warm and dry. Respiratory: Airway is patent Trachea midline Respiratory effort is even, unlabored, Respiratory pattern is regular, symmetrical, Breath sounds are clear bilaterally. GI: Abdomen is non-distended, Bowel sounds present X 4 quads. hyperactive in left upper quadrant and left lower quadrant Reports lower abdominal pain, upper abdominal pain, diarrhea, nausea, vomiting. 02:00 Reassessment: Patient and/or family updated on plan of care and expected duration. Pain ag7 level reassessed. Patient is alert, oriented x 3, equal unlabored respirations, skin warm/dry/pink. Patient denies pain at this time. 03:00 Reassessment: No changes from previously documented assessment. ag7 Vital Signs: 01/02 22:24 BP 109 / 78; Pulse 100; Resp 16; Temp 97.8(TE); Pulse Ox 96% on R/A; Weight 65.32 kg jb4 (R); Height 5 ft. 6 in. (167.64 cm); Pain 9/10; 01/03 01:00 BP 115 / 83; Pulse 90; Resp 16 S; Temp 98.2(O); Pulse Ox 98% on R/A; Pain 7/10; ag7 02:53 Pain 4/10; ag7 03:15 BP 119 / 81; Pulse 74; Resp 16 S; Pulse Ox 100% ; Pain 0/10; ag7 01/02 22:24 Body Mass Index 23.24 (65.32 kg, 167.64 cm) jb4 ED Course: 01/02 21:56 Patient arrived in ED. ja2 22:29 Triage completed. jb4 22:29 Arm band placed on right wrist. 4 01/03 00:43 Reanna Alva, RN is Primary Nurse. ag7 00:49 Fuad Mahmood MD is Attending Physician. [facility] 00:59 Patient has correct armband on for positive identification. Placed in gown. Bed in low ag7 position. Call light in reach. Side rails up X 1. 01:53 CT Abd/Pelvis - Without Contrast In Process Unspecified. EDMS 03:51 No provider procedures requiring assistance completed. IV discontinued, intact, ag7 bleeding controlled, No redness/swelling at site. Pressure dressing applied. Administered Medications: 02:00 Drug: Zofran (Ondansetron) 4 mg Route: IVP; Site: right antecubital; ag7 02:53 Follow up: Response: No adverse reaction; Marked relief of symptoms ag7 02:00 Drug: Pepcid (famotidine) 20 mg Route: IVP; Site: right antecubital; ag7 02:53 Follow up: Pain 4/10 Adult; Response: No adverse reaction; Pain is decreased ag7 02:06 Drug: NS 0.9% 1000 ml Route: IV; Rate: 1000 ml; Site: right antecubital; ag7 03:05 Follow up: IV Status: Completed infusion; IV Intake: 1000ml ag7 Medication: 01:00 VIS not applicable for this client. ag7 Intake: 03:05 IV: 1000ml; Total: 1000ml. ag7 Outcome: 03:35 Discharge ordered by . 7 03:51 Condition: stable ag7 03:51 Discharge instructions given to patient, Instructed on discharge instructions, follow up and referral plans. medication usage, Demonstrated understanding of instructions, follow-up care, medications, Prescriptions given X 4. 03:51 Discharged to home ambulatory. ag7 03:51 Patient left the ED. ag7 Signatures: Dispatcher [employer] EDAL Sean Grossman RN RN jb4 Fuad Mahmood MD MD 7 Guadalupe Hernandez Angela, RN RN ag7
--- NOTE | 2022-01-03 03:36 | EDPHYS ---
Physician Documentation [facility] Name: Fredis Michaels Age: 21 yrs Sex: Male : 2000 Arrival Date: 01/02/2022 Time: 21:56 Bed 20 Private MD: ED Physician Fuad Mahmood HPI: 01/03 01:30 This 21 yrs old Male presents to ER via Ambulatory with complaints of mh7 Vomiting, Dizziness, Abdominal Pain. 01:30 The patient presents to the emergency department with nausea, that is moderate, mh7 vomiting, that is intermittent, described as clear fluid, diarrhea, that is intermittent, abdominal pain, of the abdomen diffusely, described as crampy, intermittent, and does not radiate. Onset: The symptoms/episode began/occurred 5 day(s) ago. Possible causes: bad food exposure, possibly bad restaurant food. The symptoms are aggravated by nothing. The symptoms are alleviated by nothing. Associated signs and symptoms: Pertinent negatives: anorexia, belching, constipation, dysuria, fever, flatulence, GI bleeding, hematuria. Severity of symptoms: At their worst the symptoms were moderate 3 day(s) ago, in the emergency department the symptoms have improved moderately. Historical: - Allergies: 01/02 22:29 No Known Allergies; jb4 - Home Meds: 22:29 None [Active]; jb4 - PMHx: 22:29 flu infection; Myocardial infarction; jb4 - PSHx: 22:29 None; jb4 - Immunization history:: Adult Immunizations up to date. - Social history:: Smoking status: Patient reports the use of cigarette tobacco products, denies chronic smoking, but will smoke occasionally, Patient uses alcohol, occasionally. street drugs, marijuana. ROS: 01/03 01:30 Constitutional: Negative for fever, chills, and weight loss, Eyes: Negative for injury, mh7 pain, redness, and discharge, ENT: Negative for injury, pain, and discharge, Neck: Negative for injury, pain, and swelling, Cardiovascular: Negative for chest pain, palpitations, and edema, Respiratory: Negative for shortness of breath, cough, wheezing, and pleuritic chest pain, Back: Negative for injury and pain, : Negative for injury, bleeding, discharge, and swelling, MS/Extremity: Negative for injury and deformity, Skin: Negative for injury, rash, and discoloration, Neuro: Negative for headache, weakness, numbness, tingling, and seizure, Psych: Negative for depression, anxiety, suicide ideation, homicidal ideation, and hallucinations, Allergy/Immunology: Negative for hives, rash, and allergies, Endocrine: Negative for neck swelling, polydipsia, polyuria, polyphagia, and marked weight changes, Hematologic/Lymphatic: Negative for swollen nodes, abnormal bleeding, and unusual bruising. Exam: 01:30 Constitutional: This is a well developed, well nourished patient who is awake, alert, mh7 and in no acute distress. Head/Face: Normocephalic, atraumatic. Eyes: Pupils equal round and reactive to light, extra-ocular motions intact. Lids and lashes normal. Conjunctiva and sclera are non-icteric and not injected. Cornea within normal limits. Periorbital areas with no swelling, redness, or edema. Neck: Trachea midline, no thyromegaly or masses palpated, and no cervical lymphadenopathy. Supple, full range of motion without nuchal rigidity, or vertebral point tenderness. No Meningismus. Chest/axilla: Normal chest wall appearance and motion. Nontender with no deformity. No lesions are appreciated. Cardiovascular: Regular rate and rhythm with a normal S1 and S2. No gallops, murmurs, or rubs. Normal PMI, no JVD. No pulse deficits. Respiratory: Lungs have equal breath sounds bilaterally, clear to auscultation and percussion. No rales, rhonchi or wheezes noted. No increased work of breathing, no retractions or nasal flaring. Back: No spinal tenderness. No costovertebral tenderness. Full range of motion. Skin: Warm, dry with normal turgor. Normal color with no rashes, no lesions, and no evidence of cellulitis. MS/ Extremity: Pulses equal, no cyanosis. Neurovascular intact. Full, normal range of motion. Neuro: Awake and alert, GCS 15, oriented to person, place, time, and situation. Cranial nerves II-XII grossly intact. Motor strength 5/5 in all extremities. Sensory grossly intact. Cerebellar exam normal. Normal gait. Psych: Awake, alert, with orientation to person, place and time. Behavior, mood, and affect are within normal limits. 01:30 Abdomen/GI: Inspection: abdomen appears normal, Bowel sounds: normal, in all quadrants, mh7 Palpation: mild abdominal tenderness, in all quadrants, mass, is not appreciated, rebound tenderness, is not appreciated, voluntary guarding, is not appreciated, involuntary guarding, is not appreciated, no appreciated organomegaly, Indicators: McBurney's point is not tender, Barreto's sign is negative, Rovsing's sign is negative, Obturator sign is negative, Psoas sign is negative, Liver: no appreciated palpable abnormalities, Hernia: not appreciated. Vital Signs: 01/02 22:24 BP 109 / 78; Pulse 100; Resp 16; Temp 97.8(TE); Pulse Ox 96% on R/A; Weight 65.32 kg jb4 (R); Height 5 ft. 6 in. (167.64 cm); Pain 9/10; 01/03 01:00 BP 115 / 83; Pulse 90; Resp 16 S; Temp 98.2(O); Pulse Ox 98% on R/A; Pain 7/10; ag7 02:53 Pain 4/10; ag7 03:15 BP 119 / 81; Pulse 74; Resp 16 S; Pulse Ox 100% ; Pain 0/10; ag7 01/02 22:24 Body Mass Index 23.24 (65.32 kg, 167.64 cm) jb4 MDM: 03:34 Differential diagnosis: Nonspecific abd pain, gastritis, pancreatitis, viral mh7 gastroenteritis, gastroenteritis. Data reviewed: vital signs, nurses notes, lab test result(s), CBC, electrolytes, urinalysis, radiologic studies, CT scan. Data interpreted: Pulse oximetry: on room air is 98 %. Interpretation: normal. Counseling: I had a detailed discussion with the patient and/or guardian regarding: the historical points, exam findings, and any diagnostic results supporting the discharge/admit diagnosis, lab results, radiology results, the need for outpatient follow up, to return to the emergency department if symptoms worsen or persist or if there are any questions or concerns that arise at home. Response to treatment: the patient's symptoms have resolved after treatment, the patient's blood pressure is in an acceptable range, mental status has returned to baseline, the patient no longer shows bradycardia, the patient is not short of breath, the patient is not tachycardic, the patient's pain is gone, the patient's temperature has normalized. 03:35 Patient medically screened. [facility] 01/03 00:59 Order name: CBC with Diff; Complete Time: 02:40 7 01/03 00:59 Order name: CMP; Complete Time: 02:40 7 01/03 00:59 Order name: Lipase; Complete Time: 02:40 7 01/03 01:20 Order name: CT Abd/Pelvis - Without Contrast [facility] 01/03 01:53 Order name: Urine Dipstick-Ancillary; Complete Time: 02:40 EDMS 01/03 00:59 Order name: IV Saline Lock; Complete Time: 00:59 ag7 01/03 00:59 Order name: Labs collected and sent; Complete Time: 01:04 [facility] 01/03 01:20 Order name: Urine Dipstick-Ancillary (obtain specimen); Complete Time: 02:06 [facility] Administered Medications: 02:00 Drug: Zofran (Ondansetron) 4 mg Route: IVP; Site: right antecubital; ag7 02:53 Follow up: Response: No adverse reaction; Marked relief of symptoms 7 02:00 Drug: Pepcid (famotidine) 20 mg Route: IVP; Site: right antecubital; ag7 02:53 Follow up: Pain 4/10 Adult; Response: No adverse reaction; Pain is decreased ag7 02:06 Drug: NS 0.9% 1000 ml Route: IV; Rate: 1000 ml; Site: right antecubital; ag7 03:05 Follow up: IV Status: Completed infusion; IV Intake: 1000ml [facility] Disposition Summary: 01/03/22 03:35 Discharge Ordered Location: Home [facility] Problem: new [facility] Symptoms: have improved [facility] Condition: Stable [facility] Diagnosis - Gastroenteritis [facility] Followup: [facility] - With: Private Physician - When: 1 - 2 days - Reason: Worsening of condition, Recheck today's complaints, Continuance of care, Re-evaluation by your physician Discharge Instructions: - Discharge Summary Sheet [facility] - Viral Gastroenteritis, Adult, [id number] [facility] Forms: - Medication Reconciliation Form [facility] - Thank You Letter [facility] - Antibiotic Education [facility] - Prescription Opioid Use [facility] - Family Work Release [facility] Prescriptions: - ondansetron 4 mg Oral tablet,disintegrating - place 1 tablet by TRANSLINGUAL route every 8 hours As needed; 10 tablet; mh7 Refills: 0, Product Selection Permitted - Pepcid 20 mg Oral Tablet - take 1 tablet by ORAL route every 12 hours for 5 days; 10 tablet; Refills: 0, [facility] Product Selection Permitted - Cipro 500 mg Oral Tablet - take 1 tablet by ORAL route every 12 hours for 5 days; 10 tablet; Refills: 0, [facility] Product Selection Permitted - dicyclomine 20 mg Oral Tablet - take 1 tablet by ORAL route 4 times per day As needed; 20 tablet; Refills: 0, [facility] Product Selection Permitted Signatures: Dispatcher [employer] Sean Griggs, RN RN jb4 Fuad Mahmood MD MD mh7 Reanna Alva RN RN ag7
--- NOTE | 2022-01-03 14:44 | RAD REPORT ---
EXAM DESCRIPTION: CT - Abdomen Pelvis Wo Contrast - 01/03/2022 7:06 am CLINICAL HISTORY: 21 years, Male, Nausea/vomiting COMPARISON: 05/31/2019 TECHNIQUE: Multiple transaxial tomograms of the abdomen and pelvis were performed from the lung base s to the symphysis pubis 3 mm slice thickness at 3 mm interval reconstruction, without administration of IV and oral contrast. Multiplanar reformats in the sagittal and coronal plane were generated and reviewed. This exam was performed according to our departmental dose-optimization protocol, which includes auto mated exposure control, adjustment of the mA and/or kV according to patient size and/or use of iterat pankaj reconstruction technique. FINDINGS: The lack of IV and oral contrast limits evaluation of solid organs, subtle lesions cannot be excluded. The lung bases demonstrate to be clear. Grossly the unopacified liver, gallbladder, pancreas, spleen and adrenal glands demonstrate to be wit hin normal limits, no significant focal lesions were identified. The kidneys demonstrate grossly unremarkable. There is no evidence for nephrolithiasis and/or hydro nephrosis. Grossly the unopacified stomach, small bowel and large bowel demonstrate to be within normal limits. There is no evidence for bowel dilatation/or free air the appendix was not visualized although no sig nificant inflammatory changes are seen within the right lower quadrant. The urinary bladder demonstrate to be within normal limits. The prostate gland is unremarkable The ao rta demonstrate to be within normal limits. There is no retroperitoneal lymphadenopathy. There is no evidence for ascites. The rest of the soft tissue demonstrate to be grossly unremarkable. IMPRESSION: No evidence for nephrolithiasis and/or hydronephrosis. No evidence for bowel dilatation/obstruction. The appendix was not visualized although no significant inflammatory changes are seen within the righ t lower quadrant. Electronically signed by: Ken Estrada MD 01/03/2022 2:59 AM CDT Due to temporary technical issues with the PACS/Fluency reporting system, reports are being signed by the in house radiologist without review as a courtesy to ensure prompt reporting. The interpreting r adiologist is fully responsible for the content of the report.
== END 2022-01-03 03:51 | disposition home or self-care (01) ==
LOC: ER 21:53
DX: K52.9 Noninfective gastroenteritis and colitis, unspecified (principal); I25.2 Old myocardial infarction; F17.210 Nicotine dependence, cigarettes, uncomplicated
CPT/HCPCS: 36415; 74176; 80053; 81003; 83690; 85025; 96361; 96374; 96375; 99283; J2405; J3490; J7030

== ENCOUNTER 2024-10-28 15:42 | Emergency (ER) | payer SELFPAY ==
--- NOTE | 2024-10-28 17:36 | RAD REPORT ---
EXAMINATION: Lumbar Spine 3 Views CLINICAL INDICATION: Back pain FINDINGS: No fracture or dislocation seen.
[2024-10-28] MEDS ORDERED: NA CHLORIDE 0.9% 1,000 ML ONE (17:41)
[2024-10-28 17:49] LABS: Absolute Basophils 0.1 K/uL (0-0.5); Absolute Eosinophils 0.1 K/uL (0-0.5); Absolute Lymphocytes (CBC) 1.8 K/uL (0.7-4.9); Absolute Monocytes 0.6 K/uL (0.1-1.3); Absolute Neutrophil 5.1 K/uL (1.8-8.0); Eosinophils % 0.8 % (0-4.4); Hematocrit 47.4 % (39.6-49.0); Hemoglobin 16.5 g/dL (13.6-17.9); Lymphocytes % 23.3 % (15.3-44.8); MCH 30.4 pg (27.0-35.0); MCHC 34.9 g/dL (32.0-36.0); MCV 87.3 fL (80-100); MPV 7.2 fL (7.6-11.3); Monocytes % 7.8 % (3.3-12.3); Neutrophils % 67.1 % (41.7-73.7); Nucleated Red Blood Cells % 0.1 % (0-0); Platelets 325 thou/uL (152-406); RBC Red Blood Cell Count 5.43 M/uL (4.33-5.43); Red Cell Distribution Width 13.8 % (12.1-15.2)
[2024-10-28 18:06] LABS: Influenza A Ag Negative; Influenza B Ag Negative; SARS-CoV-2 Antigen Rapid Res Negative (Negative)
[2024-10-28 18:09] LABS: Albumin 3.8 g/dL (3.4-5.0); Anion Gap 7.8 mEq/L (5.0-15.0); Bilirubin Total 0.5 mg/dL (0.2-1.0); Globulin 3.9 g/dL (2.3-3.5); Potassium 3.8 mEq/L (3.5-5.1); Protein, Total 7.7 g/dL (6.4-8.2)
--- NOTE | 2024-10-28 18:21 | EDPHYS ---
Physician Documentation [facility] Name: Fredis Michaels Age: 23 yrs Sex: Male : 2000 Arrival Date: 10/28/2024 Time: 15:42 Bed 25 Private MD: ED Physician Viraj King HPI: 10/28 18:16 This 23 yrs old Male presents to ER via Ambulatory with complaints of Fever, edita Back Pain. 18:16 The patient reports fever, that was measured at 98.4 degrees Fahrenheit. Onset: The edita symptoms/episode began/occurred 2 day(s) ago. Modifying factors: there are no obvious modifying factors. Associated signs and symptoms: Pertinent positives: backache, chills, cough. Severity of symptoms: At their worst the symptoms were mild moderate in the emergency department the symptoms are unchanged. The patient has not experienced similar symptoms in the past. Historical: - Allergies: 16:16 No Known Allergies; hb - Home Meds: 16:16 None [Active]; hb - PMHx: 16:16 flu infection; Myocardial infarction; hb - PSHx: 16:16 None; hb - Immunization history:: Adult Immunizations up to date. - Infectious Disease History:: Denies. - Social history:: Smoking status: Patient denies any tobacco usage or history of. ROS: 18:16 Constitutional: Negative for fever, chills, and weight loss, Eyes: Negative for injury, edita pain, redness, and discharge, ENT: Negative for injury, pain, and discharge, Neck: Negative for injury, pain, and swelling, Cardiovascular: Negative for chest pain, palpitations, and edema, Abdomen/GI: Negative for abdominal pain, nausea, vomiting, diarrhea, and constipation, Back: Negative for injury and pain, : Negative for injury, bleeding, discharge, and swelling, MS/Extremity: Negative for injury and deformity, Skin: Negative for injury, rash, and discoloration, Neuro: Negative for headache, weakness, numbness, tingling, and seizure, Psych: Negative for depression, anxiety, suicide ideation, homicidal ideation, and hallucinations, Allergy/Immunology: Negative for hives, rash, and allergies, Endocrine: Negative for neck swelling, polydipsia, polyuria, polyphagia, and marked weight changes, Hematologic/Lymphatic: Negative for swollen nodes, abnormal bleeding, and unusual bruising, 18:16 Respiratory: Positive for cough, with no reported sputum, 18:16 MS/extremity: Negative for acute changes, Exam: 18:16 Constitutional: This is a well developed, well nourished patient who is awake, alert, edita and in no acute distress. Head/Face: Normocephalic, atraumatic. Eyes: Pupils equal round and reactive to light, extra-ocular motions intact. Lids and lashes normal. Conjunctiva and sclera are non-icteric and not injected. Cornea within normal limits. Periorbital areas with no swelling, redness, or edema. ENT: Nares patent. No nasal discharge, no septal abnormalities noted. Tympanic membranes are normal and external auditory canals are clear. Oropharynx with no redness, swelling, or masses, exudates, or evidence of obstruction, uvula midline. Mucous membranes moist. Neck: Trachea midline, no thyromegaly or masses palpated, and no cervical lymphadenopathy. Supple, full range of motion without nuchal rigidity, or vertebral point tenderness. No Meningismus. Chest/axilla: Normal chest wall appearance and motion. Nontender with no deformity. No lesions are appreciated. Cardiovascular: Regular rate and rhythm with a normal S1 and S2. No gallops, murmurs, or rubs. Normal PMI, no JVD. No pulse deficits. Respiratory: Lungs have equal breath sounds bilaterally, clear to auscultation and percussion. No rales, rhonchi or wheezes noted. No increased work of breathing, no retractions or nasal flaring. Abdomen/GI: Soft, non-tender, with normal bowel sounds. No distension or tympany. No guarding or rebound. No evidence of tenderness throughout. Back: No spinal tenderness. No costovertebral tenderness. Full range of motion. Skin: Warm, dry with normal turgor. Normal color with no rashes, no lesions, and no evidence of cellulitis. MS/ Extremity: Pulses equal, no cyanosis. Neurovascular intact. Full, normal range of motion., bilateral aka Neuro: Awake and alert, GCS 15, oriented to person, place, time, and situation. Cranial nerves II-XII grossly intact. Motor strength 5/5 in all extremities. Sensory grossly intact. Cerebellar exam normal. Normal gait. Psych: Awake, alert, with orientation to person, place and time. Behavior, mood, and affect are within normal limits. 18:16 Musculoskeletal/extremity: DVT Exam: No signs of deep vein thrombosis. no pain, no swelling, no tenderness, negative Homans' sign noted on exam, no appreciated bluish discoloration, no erythema, no increased warmth, Vital Signs: 16:14 BP 130 / 92; Pulse 84; Resp 16; Temp 98.4(O); Pulse Ox 100% on R/A; Weight 106.59 kg; hb Height 5 ft. 6 in. ; Pain 6/10; 19:03 BP 122 / 99; Pulse 91; Resp 16; Pulse Ox 100% on R/A; jb4 16:14 Body Mass Index 37.93 (106.59 kg, 167.64 cm) hb 16:14 Pain Scale: Adult hb Shabana Coma Score: 18:16 Eye Response: spontaneous(4). Motor Response: obeys commands(6). Verbal Response: edita oriented(5). Total: 15. MDM: 16:37 Medical Screening Exam initiated [facility] 18:17 Antibiotic administration: The patient is discharged and will get outpatient [facility] antibiotics, Zithromax. Differential diagnosis: bronchitis, flu, URI, viral Infection, bacterial infection, URI, bronchitis, pneumonia UTI, gastroenteritis. Differential Diagnosis altered mental status, sepsis, flu. Data reviewed: vital signs, nurses notes, lab test result(s), radiologic studies, plain films. Consideration of Admission/Observation Escalation of care including admission/observation considered. I considered the following discharge prescriptions or medication management in the emergency department Medications were administered in the Emergency Department. See MAR. Test considered but Not performed: X-ray: NO CXR. Care significantly affected by the following chronic conditions: FL, FLU. Counseling: I had a detailed discussion with the patient and/or guardian regarding the historical points, exam findings, and any diagnostic results supporting the discharge/admit diagnosis, lab results, radiology results, the need for outpatient follow up, for definitive care, a family practitioner. 10/28 16:39 Order name: CBC with Diff; Complete Time: 18:00 [facility] 10/28 16:39 Order name: Comprehensive Metabolic Panel; Complete Time: 18:15 [facility] 10/28 16:39 Order name: Urinalysis w/ reflexes [facility] 10/28 16:39 Order name: COVID-19 Ag + Flu A+B Ag; Complete Time: 18:15 [facility] 10/28 16:39 Order name: Lumbar Spine (3 Views) XRAY; Complete Time: 18:00 [facility] 10/28 18:15 Order name: PO challenge; Complete Time: 18:42 [facility] Administered Medications: 17:43 Drug: NS 0.9% IV 1000 ml IV at 1000 ml once; to be given as a bolus over 60 minutes jb4 Route: IV; Rate: 1000 ml; Site: left antecubital; 19:48 Follow up: Response: No adverse reaction; Marked relief of symptoms; IV Status: Pt jb4 discharge; IV Intake: 900ml 18:42 Drug: Zithromax IVPB 500 mg IVPB once over 1 hrs; mix in 250 mL NS Route: IVPB; Infused jb4 Over: 1 hrs; Site: left antecubital; 19:48 Follow up: Response: No adverse reaction; IV Status: Completed infusion; IV Intake: jb4 250ml 18:42 Drug: Ibuprofen PO 600 mg PO once Route: PO; jb4 19:48 Follow up: Response: No adverse reaction; Marked relief of symptoms jb4 Disposition Summary: 10/28/24 18:20 Discharge Ordered Notes: Location: Home [facility] Problem: new [facility] Symptoms: have improved [facility] Condition: Stable [facility] Diagnosis - Fever, unspecified [facility] - Low back pain [facility] - Acute upper respiratory infection, unspecified [facility] Followup: [facility] - With: Private Physician - When: 2 - 3 days - Reason: Recheck today's complaints, Continuance of care, Re-evaluation by your physician Discharge Instructions: - Discharge Summary Sheet [facility] - Acute Back Pain, Adult [facility] - Fever, Adult [facility] - Musculoskeletal Pain [facility] - Cool Mist Vaporizer [facility] - Upper Respiratory Infection, Adult, [id number] [facility] - Cough, Adult [facility] - Fever, Adult, [id number] [facility] Forms: - Medication Reconciliation Form [facility] - Antibiotic Education [facility] - Prescription Opioid Use [facility] - Patient Portal Instructions [facility] - Leadership Thank You Letter [facility] - Work release form jb4 Prescriptions: - Zithromax 500 mg Oral tablet - take 1 tablet ORAL route once daily for 4 days; 4 tablet; Refills: 0, Product [facility] Selection Permitted Signatures: Dispatcher [employer] Viraj Sequeira MD MD cha Baxter, Heather, RN RN Sean Grossman RN RN jb4
--- NOTE | 2024-10-28 18:21 | ER ---
Nurse's Notes [facility] Name: Fredis Michaels Age: 23 yrs Sex: Male : 2000 Arrival Date: 10/28/2024 Time: 15:42 Bed 25 Private MD: Diagnosis: Fever, unspecified;Low back pain;Acute upper respiratory infection, unspecified Presentation: 10/28 16:14 Chief complaint: Intermittent fever,. SOB, and back pain x 1 week. Coronavirus screen: hb At this time, the client does not indicate any symptoms associated with coronavirus-19. Ebola Screen: No symptoms or risks identified at this time. Initial Sepsis Screen: Does the patient meet any 2 criteria? No. Patient's initial sepsis screen is negative. Does the patient have a suspected source of infection? No. Patient's initial sepsis screen is negative. Risk Assessment: Do you want to hurt yourself or someone else? Patient reports no desire to harm self or others. Onset of symptoms was October 21, 2024. 16:14 Method Of Arrival: Ambulatory hb 16:14 Acuity: BRODER[place] 3 hb Historical: - Allergies: 16:16 No Known Allergies; hb - Home Meds: 16:16 None [Active]; hb - PMHx: 16:16 flu infection; Myocardial infarction; hb - PSHx: 16:16 None; hb - Immunization history:: Adult Immunizations up to date. - Infectious Disease History:: Denies. - Social history:: Smoking status: Patient denies any tobacco usage or history of. Screenin:49 [facility] ED Fall Risk Assessment (Adult) History of falling in the last 3 months, jb4 including since admission No falls in past 3 months (0 pts) Confusion or Disorientation No (0 pts) Intoxicated or Sedated No (0 pts) Impaired Gait No (0 pts) Mobility Assist Device Used No (0 pt) Altered Elimination No (0 pt) Score/Fall Risk Level 0 - 2 = Low Risk Oriented to surroundings, Maintained a safe environment. Abuse screen: Denies threats or abuse. Nutritional screening: No deficits noted. Tuberculosis screening: No symptoms or risk factors identified. Assessment: 17:45 General: Appears in no apparent distress. comfortable, Behavior is calm, cooperative, jb4 appropriate for age. Pain: Complains of pain in back Pain does not radiate. Pain currently is 6 out of 10 on a pain scale. Neuro: Level of Consciousness is awake, alert, obeys commands, Oriented to person, place, time, situation. Cardiovascular: Patient's skin is warm and dry. Respiratory: Airway is patent Respiratory effort is even, unlabored, Respiratory pattern is regular, symmetrical. Derm: Skin is intact, Skin is pink, warm \T\ dry. Musculoskeletal: Circulation, motion, and sensation intact. Range of motion: intact in all extremities. 19:00 Reassessment: Patient appears in no apparent distress at this time. Patient and/or jb4 family updated on plan of care and expected duration. Pain level reassessed. Patient is alert, oriented x 3, equal unlabored respirations, skin warm/dry/pink. D/c pending completion of IV antibiotics. Vital Signs: 16:14 BP 130 / 92; Pulse 84; Resp 16; Temp 98.4(O); Pulse Ox 100% on R/A; Weight 106.59 kg; hb Height 5 ft. 6 in. ; Pain 6/10; 19:03 BP 122 / 99; Pulse 91; Resp 16; Pulse Ox 100% on R/A; jb4 16:14 Body Mass Index 37.93 (106.59 kg, 167.64 cm) hb 16:14 Pain Scale: Adult hb [place] Coma Score: 18:16 Eye Response: spontaneous(4). Motor Response: obeys commands(6). Verbal Response: edita oriented(5). Total: 15. ED Course: 15:46 Patient arrived in ED. cj3 16:15 Triage completed. hb 16:16 Arm band placed on. hb 16:37 Viraj King MD is Attending Physician. edita 17:07 Lumbar Spine (3 Views) XRAY In Process Unspecified. EDMS 17:42 COVID-19 Ag + Flu A+B Ag Sent. bc6 17:43 Urinalysis w/ reflexes Sent. bc6 17:43 Comprehensive Metabolic Panel Sent. bc6 17:43 CBC with Diff Sent. bc6 17:43 Initial lab(s) drawn, by me, sent to lab. Inserted saline lock: 20 gauge in left bc6 antecubital area, using aseptic technique. Blood collected. Flushed with 10 mL NS. 19:01 Sean Grossman, ANTHONY is Primary Nurse. jb4 19:49 Patient has correct armband on for positive identification. Bed in low position. Call jb4 light in reach. Side rails up X 1. Provided Education on: discharge instructions.. 19:49 No provider procedures requiring assistance completed. IV discontinued, intact, jb4 bleeding controlled, No redness/swelling at site. Pressure dressing applied. Administered Medications: 17:43 Drug: NS 0.9% IV 1000 ml IV at 1000 ml once; to be given as a bolus over 60 minutes jb4 Route: IV; Rate: 1000 ml; Site: left antecubital; 19:48 Follow up: Response: No adverse reaction; Marked relief of symptoms; IV Status: Pt jb4 discharge; IV Intake: 900ml 18:42 Drug: Zithromax IVPB 500 mg IVPB once over 1 hrs; mix in 250 mL NS Route: IVPB; Infused jb4 Over: 1 hrs; Site: left antecubital; 19:48 Follow up: Response: No adverse reaction; IV Status: Completed infusion; IV Intake: jb4 250ml 18:42 Drug: Ibuprofen PO 600 mg PO once Route: PO; jb4 19:48 Follow up: Response: No adverse reaction; Marked relief of symptoms jb4 Medication: 19:49 VIS not applicable for this client. jb4 Intake: 19:48 IV: 250ml; Total: 250ml. jb4 19:48 IV: 900ml; Total: 1150ml. jb4 Outcome: 18:20 Discharge ordered by . edita 19:49 Discharged to home ambulatory, jb4 19:49 Condition: stable 19:49 Discharge instructions given to patient, Instructed on discharge instructions, follow up and referral plans. medication usage, Demonstrated understanding of instructions, follow-up care, medications, Prescriptions given X 1, 19:50 Patient left the ED. jb4 Signatures: Dispatcher [employer] EDViraj Abarca MD MD cha Baxter, Heather, ANTHONY RN Sean Palmer RN RN jb4 Angelika Johnson 6 Paola Chase cj3
[2024-10-28] MEDS ORDERED: IBUPROFEN 200 MG TAB PO ONE (18:35)
[2024-10-28] MEDS ORDERED: NA CHLORIDE 0.9% 250 ML ONE (18:36)
[2024-10-28] MEDS ORDERED: AZITHROMYCIN 500 MG INJ IVPB ONE (18:36)
[2024-10-28 18:56] LABS: Specific Gravity 1.026 (1.005-1.030); Sqamous Epithelial <5 /HPF (None Seen); Urine Bacteria <20 /HPF (<20); Urine Bilirubin NEGATIVE (Negative); Urine Blood Negative (Negative); Urine Clarity Turbid (Clear); Urine Color Yellow (Yellow); Urine Crystals Unidentified Few /HPF (None Seen); Urine Culture Reflex Order NOT NEEDED; Urine Glucose NEGATIVE (Negative); Urine Ketones NEGATIVE (Negative); Urine Microscopic Reflex YN ORDER UMIC; Urine Mucus 4+ /HPF (None Seen); Urine Nitrite NEGATIVE (Negative); Urine Protein TRACE (Negative); Urine RBC <5 /HPF (None Seen); Urine Urobilinogen Normal (Normal); Urine WBC <5 /HPF (<5)
[2024-10-28 20:48] VITALS: TEMP 98.4; O2SAT 100
[2024-10-28 20:54] VITALS: BP 122/99
== END 2024-10-28 19:50 | disposition home or self-care (01) ==
LOC: ER 15:42
DX: J06.9 Acute upper respiratory infection, unspecified (principal); M54.50 Low back pain, unspecified; Z11.52 Encounter for screening for COVID-19
CPT/HCPCS: 36415; 72100; 80053; 81001; 85025; 87428; 96361; 96365; 99284; J7030; J7050